=== PATIENT | female | born 1960 | race American Indian/Alaskan Native ===

== ENCOUNTER 2019-12-12 12:50 | Emergency (ER) | payer OTHER ==
[2019-12-12 12:57] VITALS: BP 141/77
[2019-12-12] MEDS ORDERED: traMADol 50 MG TAB PO ONE (13:14)
--- NOTE | 2019-12-12 13:17 | Emergency Department Report ---
[place] Chief Complaint: Skin/Abscess/Foreign Body Stated Complaint: ABSCESS ON BUTTOCK Time Seen by Provider: 12/12/19 13:12 Duration: >1 Week Location: Other (Left gluteal) History: Yes Pain, No Fever, No Purulent Drainage, No Numbness, No Foreign Body, No Previous History, No Insect Bite HPI: 59-year-old -[place] female in no acute distress presents to the emergency room complaining of an abscess on her buttocks x1 week in the last 2 days another has popped up. Patient reports that she is a diabetic and currently not on any medications as she did not have insurance. Patient denies any fever no chills no nausea no vomiting no chest pain shortness of breathing or abdominal pain. Patient reports he has no known drug allergies. Home Medications: Previous Rx's Medication Instructions Recorded Last Taken Type Clindamycin [Clindamycin CAP] 300 mg PO Q8H 10 Days #30 cap 12/12/19 Unknown Rx Allergies/Adverse Reactions: Allergies Allergy/AdvReac Type Severity Reaction Status Date / Time No Known Allergies Allergy Verified 12/12/19 12:51 ED Review of Systems ROS: Stated complaint: ABSCESS ON BUTTOCK Other details as noted in HPI ED Past Medical Hx - Past Medical History Previous Medical History?: No Hx Diabetes: Yes - Surgical History Past Surgical History?: No - Social History Smoking Status: Never Smoker Substance Use Type: None - Medications Home Medications: Home Medications Medication Instructions Recorded Confirmed Last Taken Type Clindamycin [Clindamycin CAP] 300 mg PO Q8H 10 Days #30 cap 12/12/19 Unknown Rx ED Abscess Boil Physical Exam - Exam General: Vital signs noted. No distress. Alert and acting appropriately. Front/Back of Body, Lg (Color): 1 - Left gluteal Size: 4 cm Exam: Yes Tenderness, Yes Fluctuance, Yes Surrounding Cellulites/Erythema, Yes Normal Neurologic Exam, Yes Normal Circulation I & D Note - I & D Note I & D Note: DATE OF PROCEDURE: . PREOPERATIVE DIAGNOSES: 1.soft tissue infection. 2. soft tissue infection. POSTOPERATIVE DIAGNOSES: 1. 2. Left gluteal soft tissue infection. Infection appeared to be contained to subcutaneous tissue and there was no evidence of necrotizing soft tissue infection including myonecrosis. OPERATION PERFORMED: Incision and drainage of ..... soft tissue abscess. Provider: Boby Haq PA-C. ANESTHESIA: Local. DESCRIPTION OF PROCEDURE: The patient was prepped and draped. Seropurulent, somewhat bloody fluid was noted. The infection appeared contained to a golf ball-sized area in the subcutaneous tissues above the fascia. There was no evidence of myonecrosis, penetration of the fascia or significant extent along the fascia of the infection. We cleaned the area with Betadine and then packed the wound .......... Dry dressings were applied. The patient appeared to tolerate the procedure well. ED Course Vital Signs 12/12/19 12:55 Temperature 98.2 F Pulse Rate 103 H Respiratory 16 Rate Blood Pressure 141/77 [Left] O2 Sat by Pulse 100 Oximetry Critical care attestation.: If time is entered above; I have spent that time in minutes in the direct care of this critically ill patient, excluding procedure time. ED Medical Decision Making - Medical Decision Making 59-year-old -[place] female in no acute distress presents to the emergency room complaining of an abscess on her buttocks x1 week in the last 2 days another has popped up. Patient reports that she is a diabetic and currently not on any medications as she did not have insurance. Patient denies any fever no chills no nausea no vomiting no chest pain shortness of breathing or abdominal pain. Patient reports he has no known drug allergies. Tramadol given for pain. Patient had this abscess incision and drainage. Patient be placed on clindamycin patient can continue with the amoxicillin and ibuprofen. Will refer patient to a primary care provider. ED Disposition Clinical Impression: Abscess of buttock, left, Diabetes Disposition: - TO HOME OR SELFCARE Is pt being admited?: No Does the pt Need Aspirin: No Condition: Stable Instructions: Diabetes Mellitus Type 2 in Adults (ED) Additional Instructions: Complete antibiotics as prescribed. [id number] Tylenol or ibuprofen for pain management. Follow-up with her primary care provider I have listed 1 below for your convenience Prescriptions: Clindamycin [Clindamycin CAP] 300 mg PO Q8H 10 Days #30 cap Referrals: LULI HAWTHORNE MD [Staff Physician] - 3-[address] [facility] [Provider Group] - 3-5 Days Forms: Work/School Release Form(ED)
== END 2019-12-12 14:22 | disposition home or self-care (01) ==
LOC: ED 12:50
DX: L02.31 Cutaneous abscess of buttock (principal); E11.9 Type 2 diabetes mellitus without complications; Z79.2 Long term (current) use of antibiotics